=== PATIENT | male | born 1955 ===

== ENCOUNTER 2016-11-21 06:05 | Day surgery (SDC) | payer OTHER ==
[2016-11-21] MEDS ORDERED: PROPOFOL 200 MG/20 ML BOTTLE IV ONE (07:15)
[2016-11-21] MEDS ORDERED: SEVOFLURANE 250 ML BOTTLE IH ONE (07:15)
[2016-11-21] MEDS ORDERED: ONDANSETRON 4 MG/2 ML VIAL IV ONE (07:16)
[2016-11-21] MEDS ORDERED: CEFAZOLIN 1 G VIAL MC ONE (07:16)
[2016-11-21] MEDS ORDERED: LIDOCAINE HCL 2% 20 ML VIAL MC ONE (07:17)
[2016-11-21] MEDS ORDERED: IRR NORMAL SALINE IRRIGATION 2000 ML BOTTLE IR ONE (07:18)
[2016-11-21] MEDS ORDERED: MIDAZOLAM HCL 2 MG/2 ML VIAL ONE (07:31)
[2016-11-21] MEDS ORDERED: FENTANYL CITRATE 100 MCG/2 ML AMPUL ONE (07:31)
[2016-11-21] MEDS ORDERED: SUCCINYLCHOLINE CHLORIDE 200 MG/10 ML VIAL ONE (07:31)
[2016-11-21] MEDS ORDERED: BUPIVACAINE PF 0.5% 30 ML VIAL ONE (07:42)
[2016-11-21] MEDS ORDERED: POLYMYXIN B SULFATE 500,000 UNITS, BACITRACIN 50,000 UNITS, NORMAL SALINE 20 ML MC ONE ×3 (07:45)
[2016-11-21] MEDS ORDERED: EPHEDRINE SULFATE 50 MG/ML AMPUL ONE (10:28)
== END 2016-11-21 13:55 | disposition home or self-care (01) ==
LOC: DS 06:05 → EDSEX 08:00 → DS 13:55
PROVIDERS: ATTEND Orthopaedic Surgery
DX: M75.112 Incomplete rotator cuff tear or rupture of left shoulder, not specified as traumatic (principal); M19.012 Primary osteoarthritis, left shoulder; M66.829 Spontaneous rupture of other tendons, unspecified upper arm; M25.812 Other specified joint disorders, left shoulder; M75.52 Bursitis of left shoulder; I10 Essential (primary) hypertension; M06.80 Other specified rheumatoid arthritis, unspecified site; E11.9 Type 2 diabetes mellitus without complications; E78.4 Other hyperlipidemia; T50.995A Adverse effect of other drugs, medicaments and biological substances, initial encounter
CPT/HCPCS: 23120; 23130; 23412; 23430; 82962 ×2; A4217; A4649; A4663; J0330; J0690; J2250; J2405; J3010; J3490 ×6; J7030; A4565; C1713